=== PATIENT | female | born 1995 | race Caucasian/White ===

== ENCOUNTER 2019-01-10 13:57 | Emergency (ER) | payer OTHER ==
[2019-01-10 14:31] VITALS: RESP 18; TEMP 98.7
--- NOTE | 2019-01-10 14:47 | ED ---
Psych HPI - General Source: patient, RN notes reviewed Mode of arrival: ambulatory Limitations: no limitations <Will Garcia - Last Filed: 01/10/19 14:45> <Sanchez Pimentel - Last Filed: 01/10/19 19:31> - General Chief Complaint: Psychiatric Symptoms Stated Complaint: Mental health Time Seen by Provider: 01/10/19 14:32 - History of Present Illness Initial Comments: 23-year-old female presents emergency Department chief complaint of depression, suicidal ideation. 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 Patient states that she's had some intermittent thoughts of harming herself no exact plan. Denies any drug or alcohol abuse. Patient states that she told family about her thoughts and she was brought here for evaluation. She denies any physical complaints. She has been taken Zoloft for the last 2 weeks states has not helped at this point. (Will Garcia) - Related Data Home Medications Medication Instructions Recorded Confirmed Norethindrone-E.estradiol-Iron 1 tab PO DAILY 01/10/19 01/10/19 [Junel Fe 1 mg-20 Mcg Tablet] Sertraline [Zoloft] 100 mg PO DAILY 01/10/19 01/10/19 Allergies Allergy/AdvReac Type Severity Reaction Status Date / Time No Known Allergies Allergy Verified 01/10/19 14:31 Review of Systems ROS Other: All systems not noted in ROS Statement are negative. <Will Garcia - Last Filed: 01/10/19 14:45> ROS Other: All systems not noted in ROS Statement are negative. <Sanchez Pimentel - Last Filed: 01/10/19 19:31> ROS Statement: Those systems with pertinent positive or pertinent negative responses have been documented in the HPI. Past Medical History Past Medical History: Seizure Disorder History of Any Multi-Drug Resistant Organisms: None Reported Past Surgical History: No Surgical Hx Reported Past Psychological History: Anxiety, Depression Smoking Status: Never smoker Past Alcohol Use History: None Reported Past Drug Use History: None Reported <Will Garcia - Last Filed: 01/10/19 14:45> General Exam Limitations: no limitations General appearance: alert, in no apparent distress Head exam: Present: atraumatic, normocephalic, normal inspection Eye exam: Present: normal appearance, PERRL, EOMI. Absent: scleral icterus, conjunctival injection, periorbital swelling ENT exam: Present: normal exam, normal oropharynx, mucous membranes moist Neck exam: Present: normal inspection, full ROM. Absent: tenderness, meningismus, lymphadenopathy Respiratory exam: Present: normal lung sounds bilaterally. Absent: respiratory distress, wheezes, rales, rhonchi, stridor Cardiovascular Exam: Present: regular rate, normal rhythm, normal heart sounds. Absent: systolic murmur, diastolic murmur, rubs, gallop, clicks GI/Abdominal exam: Present: soft, normal bowel sounds. Absent: distended, tenderness, guarding, rebound, rigid Neurological exam: Present: alert, oriented X3, CN II-XII intact Psychiatric exam: Present: depressed Skin exam: Present: warm, dry, intact, normal color. Absent: rash <Will Garcia - Last Filed: 01/10/19 14:45> Course Vital Signs 01/10/19 14:29 Temperature 98.7 F Pulse Rate 109 H Respiratory 18 Rate Blood Pressure 112/74 O2 Sat by Pulse 98 Oximetry Medical Decision Making <Sanchez Pimentel - Last Filed: 01/10/19 19:31> - Medical Decision Making Patient evaluated by EPS for depression and suicidal ideation. She is no longer voicing any suicidal ideation or suicidal plan. She has not been sleeping well. EPS evaluated this patient and feel she is safe for discharge at this time. I did reevaluate the patient and agree with this assessment. She will follow-up as an outpatient with [facility]. (Sanchez Pimentel) - Lab Data Lab Results 01/10/19 01/10/19 Range/Units 16:15 16:15 Urine Color Light Yellow Urine Appearance Cloudy H (Clear) Urine pH 7.0 (5.0-8.0) Ur Specific [place] 1.012 (1.001-1.035) Urine Protein Negative (Negative) Urine Glucose (UA) Negative (Negative) Urine Ketones Negative (Negative) Urine Blood Negative (Negative) Urine Nitrite Negative (Negative) Urine Bilirubin Negative (Negative) Urine Urobilinogen <2.0 (<2.0) mg/dL Ur Leukocyte Esterase Large H (Negative) Urine RBC 1 (0-5) /hpf Urine WBC 6 H (0-5) /hpf Ur Squamous Epith Cells 2 (0-4) /hpf Urine Bacteria Moderate H (None) /hpf Urine Mucus Rare H (None) /hpf Urine HCG, Qual Not Detected (Not Detectd) Urine Opiates Screen Not Detected (NotDetected) Ur Oxycodone Screen Not Detected (NotDetected) Urine Methadone Screen Not Detected (NotDetected) Ur Propoxyphene Screen Not Detected (NotDetected) Ur Barbiturates Screen Not Detected (NotDetected) U Tricyclic Antidepress Not Detected (NotDetected) Ur Phencyclidine Scrn Not Detected (NotDetected) Ur Amphetamines Screen Not Detected (NotDetected) U Methamphetamines Scrn Not Detected (NotDetected) U Benzodiazepines Scrn Not Detected (NotDetected) Urine Cocaine Screen Not Detected (NotDetected) U Marijuana (THC) Screen Not Detected (NotDetected) Disposition <Will Garcia M - Last Filed: 01/10/19 14:45> Is patient prescribed a controlled substance at d/c from ED?: No Time of Disposition: 19:31 <Sanchez Pimentel - Last Filed: 01/10/19 19:31> Clinical Impression: Depression Disposition: HOME SELF-CARE Condition: Fair Instructions (If sedation given, give patient instructions): Depression (ED) Additional Instructions: Please follow up with community mental health. Referrals: Raheem Case DO [Primary Care Provider] - 1-2 days
[2019-01-10 16:30] LABS: Appearance,Urine Cloudy (Clear); Bacteria,Urine Moderate /hpf; Bilirubin,Urine Negative (Negative); Blood,Urine Negative (Negative); Color,Urine Light Yellow; Glucose,Urine (UA) Negative (Negative); Ketones,Urine Negative (Negative); Leukocyte Esterase,Urine Large (Negative); Mucus,Urine Rare /hpf; Nitrite,Urine Negative (Negative); Protein,Urine Negative (Negative); RBC,Urine 1 /hpf (0-5); Specific Gravity,Urine 1.012 (1.001-1.035); Squamous Epithelial Cell,Urine 2 /hpf (0-4); Urobilinogen,Urine <2.0 mg/dL (<2.0); WBC,Urine 6 /hpf (0-5)
[2019-01-10 17:02] LABS: Amphetamine Screen,Urine Not Detected (NotDetected); Barbiturate Screen,Urine Not Detected (NotDetected); Benzodiazepines Screen,Urine Not Detected (NotDetected); Cocaine Screen,Urine Not Detected (NotDetected); Methadone Screen, Urine Not Detected (NotDetected); Opiate Screen,Urine Not Detected (NotDetected); Oxycodone Screen, Urine Not Detected (NotDetected); Phencyclidine Screen,Urine Not Detected (NotDetected); Tricyclic Antidepressant,Urine Not Detected (NotDetected); Urn Cannabinoid Scrn Not Detected (NotDetected)
[2019-01-10] MEDS ORDERED: LORazepam 1 MG TAB PO STA (19:31)
[2019-01-10 19:55] VITALS: BP 110/74; PULSE 79
== END 2019-01-10 19:53 | disposition home or self-care (01) ==
LOC: EC 13:57
DX: F32.9 Major depressive disorder, single episode, unspecified (principal); F41.9 Anxiety disorder, unspecified; Z79.899 Other long term (current) drug therapy
CPT/HCPCS: 80306; 81001; 81025; 82075; 99285